=== PATIENT | female | born 1970 | race Caucasian/White ===

== ENCOUNTER 2022-09-13 22:38 | Emergency (ER) | payer OTHER ==
[~2022-09-13] VITALS: Ht 165.1 cm; Wt 100.0 kg
[~2022-09-13 22:38] MED LIST: NOCURR
[2022-09-13 22:48] VITALS: BP 149/83
[2022-09-13] MEDS ORDERED: CEPH-556 PO (22:54)
[2022-09-14] MEDS ORDERED: PERTUSS(ACELL),DIPH,TET VAC/PF 0.5 ML SYRINGE IM. ONE (05:30)
== END 2022-09-14 06:20 | disposition home or self-care (01) ==
LOC: EMS 23:00
DX: S80.12XA Contusion of left lower leg, initial encounter (principal); N83.209 Unspecified ovarian cyst, unspecified side; Z90.710 Acquired absence of both cervix and uterus; Z98.890 Other specified postprocedural states; X58.XXXA Exposure to other specified factors, initial encounter; Y93.89 Activity, other specified; Y92.89 Other specified places as the place of occurrence of the external cause; Y99.8 Other external cause status
CPT/HCPCS: 90471; 90715; 99283